=== PATIENT | female | born 1990 | race Two or more races ===

== ENCOUNTER 2023-01-13 08:21 | Emergency (ER) | payer OTHER ==
[~2023-01-13] VITALS: Ht 160 cm; Wt 117.8 kg
[2023-01-13] MEDS ORDERED: METFORMIN HCL500 MG PO (08:36)
[2023-01-13] MEDS ORDERED: IBU600 MG PO (08:42)
[2023-01-13] MEDS ORDERED: PREDNISONE20 MG PO (08:42)
[2023-01-13] MEDS ORDERED: AMOX TR-K CLV1 EAC1 PO (08:42)
== END 2023-01-13 08:52 | disposition home or self-care (01) ==
LOC: ED 08:21
DX: J03.80 Acute tonsillitis due to other specified organisms (principal); Z79.84 Long term (current) use of oral hypoglycemic drugs
CPT/HCPCS: 99282